=== PATIENT | female | born 1985 | race Caucasian/White ===

== ENCOUNTER → 2021-01-26 09:48 | Outpatient (CLI) | payer OTHER, SELFPAY ==
--- NOTE | ~2021-01-26 | XR_ITS ---
EXAMINATION: XR hip RT 2V w AP pelvis EXAM DATE: 01/26/2021 11:06 INDICATION: Right hip pain. TECHNIQUE: Right hip frontal, 'frog leg' projections for interpretation. Frontal projection pelvis. L eft hip was also imaged with frontal and frog-leg projections by mistake, no charge for this. There a re no prior studies for comparison. FINDINGS: Both hips are symmetric and without evidence of avascular necrosis. No fracture or other ac renetta osseous findings. There is mild symmetric bilateral hip primary osteoarthritis. Calcifications in the pelvis are believed to be phleboliths. There is IUD projecting over the central aspect of the pelvis. The sacrum and pelvis are unremarkable. IMPRESSION: Mild symmetric bilateral hip osteoarthritis. Reviewed, dictated and finalized at location B[facility]
== END ==
PROVIDERS: PCP Family Medicine; Visit Provider Family Medicine
DX: M16.0 Bilateral primary osteoarthritis of hip (principal)
CPT/HCPCS: 73502